=== PATIENT | male | born 1950 | race Caucasian/White ===

== ENCOUNTER 2018-03-31 05:51 | Day surgery (SDC) | payer OTHER ==
[2018-03-29 12:33] VITALS: BP 106/61
[2018-03-29 12:39] LABS: HEMATOCRIT 31.1 % (42-54); LYMPHOCYTES % (AUTO) 14.9 % (21.0-51.0); MEAN CORPUSCULAR HEMOGLOBIN 17.7 pg (27.0-33.0); MEAN CORPUSCULAR HGB CONC 29.1 g/dL (32.0-36.0); MEAN CORPUSCULAR VOLUME 60.8 fL (79-99); MONOCYTES % (AUTO) 8.9 % (3.0-13.0); NEUTROPHILS % (AUTO) 73.2 % (40.0-77.0); NUCLEATED RED BLOOD CELLS 0.1 % (0.0-0.19); PLATELET COUNT (AUTO) 228 K/uL (130-400); RED BLOOD CELL COUNT(AUTO) 5.11 MIL/uL (4.50-6.20); RED CELL DISTRIBUTION WIDTH 19.3 % (11.0-15.5); WHITE BLOOD COUNT (AUTO) 7.1 K/uL (4.8-10.8)
[2018-03-29 12:54] LABS: CREATININE 1.2 mg/dL (0.5-1.5); POTASSIUM 4.5 mmol/L (3.5-5.1)
[2018-03-29 13:30] LABS: INR 0.98 (0.85-1.15); PARTIAL THROMBOPLASTIN TIME 25.4 SEC (26.3-35.5); PROTHROMBIN TIME 10.3 SEC (9.6-11.6)
--- NOTE | 2018-03-30 12:58 | NUR ---
NOTE REPORTED LOW H&h TO DR BISWAS NO FURTHER ORDERS GIVEN.
[2018-03-31] VITALS (8 sets, daily range): BP systolic 93–127; BP diastolic 67–85
[~2018-03-31] VITALS: Ht 181.6 cm; Wt 102.9 kg
[~2018-03-31 05:51] MED LIST: APIX5TAB PO; CARV6.25 PO; MULT-1203 PO; OMEP20CA10 PO; ROSU10TA27 PO; SOTA80TA20 PO; [UNRECOGNIZED DRUG - OTHER] PO
[2018-03-31] MEDS ORDERED: HEPARIN SODIUM 1000UNIT/ML 10ML VIAL ONE (07:13)
[2018-03-31] MEDS ORDERED: MEPERIDINE-PF 25 MG/ML SYG ONE ×5 (07:13→10:04)
[2018-03-31] MEDS ORDERED: MIDAZOLAM HCL 1 MG/ML 2ML VIAL ONE ×6 (07:14→10:05)
[2018-03-31] MEDS ORDERED: LIDOCAINE HCL 2% 20ML ONE (07:14)
[2018-03-31] MEDS ORDERED: SODIUM CHLORIDE 0.9% 1000ML 1,000 ML IV SCH (08:00)
[2018-03-31] MEDS ORDERED: AMIODARONE HCL 50 MG/ML 3 ML VIAL ONE (09:39)
[2018-03-31] MEDS ORDERED: METOPROLOL TARTRATE 1 MG/ML 5ML VIAL IV ONE (10:10)
[2018-03-31] MEDS ORDERED: DRON400T2 PO (10:28)
[2018-03-31] MEDS ORDERED: METO25TA6 PO (10:28)
--- NOTE | 2018-03-31 13:25 | NUR ---
pt returned from quality lab technician at 1104 with quality lab technician staff, pt remains afib 119 and aware. Discharge orders for 1400, called Doctor Antunez and discussed that pt remains Afib in the 120, per doctor antunez okay to discharge however, medication regimen needs to be discussed.
== END 2018-03-31 14:00 | disposition home or self-care (01) ==
LOC: DAH 05:51
PROVIDERS: ATTEND Internal Medicine Cardiovascular Disease
DX: I48.0 Paroxysmal atrial fibrillation (principal); I48.4 Atypical atrial flutter; Z79.01 Long term (current) use of anticoagulants; Z98.890 Other specified postprocedural states; K21.0 Gastro-esophageal reflux disease with esophagitis; Z68.30 Body mass index [BMI] 30.0-30.9, adult; I25.10 Atherosclerotic heart disease of native coronary artery without angina pectoris; E78.5 Hyperlipidemia, unspecified; Z88.8 Allergy status to other drugs, medicaments and biological substances; Z79.899 Other long term (current) drug therapy; Z88.0 Allergy status to penicillin
CPT/HCPCS: 36415; 80048; 85025; 85610; 85730; 93613; 93621; 93653; A4606; A4649; C1730 ×2; C1732; C1893; C1894 ×2; J0282; J1644 ×2; J2175 ×4; J2250 ×5; J3490 ×2; J7030; 99156; 99157

== ENCOUNTER 2018-05-31 05:53 | Day surgery (SDC) | payer OTHER ==
[2018-05-29 08:37] VITALS: BP 117/90
[2018-05-29 08:38] LABS: BASOPHILS % (AUTO) 1.7 % (0.0-5.0); EOSINOPHILS % (AUTO) 3.2 % (0.0-8.0); LYMPHOCYTES % (AUTO) 16.4 % (21.0-51.0); MEAN CORPUSCULAR HEMOGLOBIN 18.2 pg (27.0-33.0); MEAN CORPUSCULAR HGB CONC 29.8 g/dL (32.0-36.0); MEAN CORPUSCULAR VOLUME 61.2 fL (79-99); MONOCYTES % (AUTO) 6.7 % (3.0-13.0); NUCLEATED RED BLOOD CELLS 0.1 % (0.0-0.19); PLATELET COUNT (AUTO) 283 K/uL (130-400); RED BLOOD CELL COUNT(AUTO) 5.07 MIL/uL (4.50-6.20)
[2018-05-29 08:49] LABS: CREATININE 1.1 mg/dL (0.5-1.5)
[2018-05-29 08:52] LABS: INR 1.07 (0.85-1.15); PARTIAL THROMBOPLASTIN TIME 28.9 SEC (26.3-35.5); PROTHROMBIN TIME 11.2 SEC (9.6-11.6)
--- NOTE | 2018-05-29 15:21 | NUR ---
CBC cbc from 05/29/[address] Buenrostro's office, no new orders, ok to proceed with procedure as planned per [facility] nurse.
[~2018-05-31] VITALS: Ht 181.6 cm; Wt 104.0 kg
[2018-05-31] VITALS (8 sets, daily range): BP systolic 99–123; BP diastolic 55–79
[~2018-05-31 05:53] MED LIST changes: -CARV6.25 PO; +DRON400T2 PO; +METO100T14 PO; +SODIUM CHLORIDE 0.9% 1000ML 1,000 ML IV SCH; -SOTA80TA20 PO; +UBIQUINOL PO; +VITA1CAP85 PO; -[UNRECOGNIZED DRUG - OTHER] PO
[2018-05-31] MEDS ORDERED: PROPOFOL 10 MG/ML 20ML VIAL IV ONE (06:50)
[2018-05-31] MEDS ORDERED: LIDOCAINE HCL 1% 20 ML VIAL ONE (06:51)
--- NOTE | 2018-05-31 07:15 | NUR ---
time out done cardioverstion done [address] antunez. patient tolerated procedure well.
--- NOTE | 2018-05-31 08:20 | NUR ---
PATIENT DISCHARGED IN NO DISTRESS VIA WHEELCHAIR. STATED SHE WILL MAKE F/U APPOINTMENT AFTER 234
== END 2018-05-31 08:20 | disposition home or self-care (01) ==
LOC: DAH 05:53
PROVIDERS: ATTEND Internal Medicine Cardiovascular Disease
DX: I48.1 Persistent atrial fibrillation (principal); E78.5 Hyperlipidemia, unspecified; Z79.01 Long term (current) use of anticoagulants; Z88.0 Allergy status to penicillin; Z88.8 Allergy status to other drugs, medicaments and biological substances; Z79.899 Other long term (current) drug therapy; I48.3 Typical atrial flutter; I47.1 Supraventricular tachycardia
CPT/HCPCS: 36415; 80048; 85025; 85610; 85730; 92960; 93005 ×2; A4606; J2704; 99156

== ENCOUNTER 2018-09-22 05:55 | Day surgery (SDC) | payer OTHER ==
[2018-09-20 12:01] LABS: BASOPHILS % (AUTO) 1.2 % (0.0-5.0); HEMATOCRIT 35.5 % (42-54); MEAN CORPUSCULAR HEMOGLOBIN 19.2 pg (27.0-33.0); NEUTROPHILS % (AUTO) 62.8 % (40.0-77.0); PLATELET COUNT (AUTO) 235 K/uL (130-400); RED BLOOD CELL COUNT(AUTO) 5.55 MIL/uL (4.50-6.20); RED CELL DISTRIBUTION WIDTH 19.4 % (11.0-15.5); WHITE BLOOD COUNT (AUTO) 4.9 K/uL (4.8-10.8)
[2018-09-20 12:03] VITALS: BP 127/95
[2018-09-20 12:09] LABS: CREATININE 1.2 mg/dL (0.5-1.5); POTASSIUM 4.7 mmol/L (3.5-5.1)
[2018-09-20 12:12] LABS: INR 1.02 (0.85-1.15); PROTHROMBIN TIME 10.7 SEC (9.6-11.6)
[~2018-09-22] VITALS: Ht 182.9 cm; Wt 104.7 kg
[2018-09-22] VITALS (8 sets, daily range): BP systolic 113–141; BP diastolic 71–83
[~2018-09-22 05:55] MED LIST changes: +AMIO200T5 PO; -DRON400T2 PO; +LOSA50TA64 PO; -MULT-1203 PO; +OMEP-50 PO; -OMEP20CA10 PO; -ROSU10TA27 PO; +ROSU10TA28 PO; -SODIUM CHLORIDE 0.9% 1000ML 1,000 ML IV SCH; -VITA1CAP85 PO
--- NOTE | 2018-09-22 06:00 | NUR ---
PRE-PROCEDURE RECEIVED TO DAY 14 AMBULATING FOR SCHEDULED ATRIAL FLUTTER ABLATION. PER PT HE HAS BEEN HAVING "IRREGULAR PULSE" SINCE AUGUST. AWAKE IN NO ACUTE DISTRESS. CONNECTED TO CONTINUOUS CARDIOPULMONARY MONITORING. DENIES PAIN. SIDE RAILS UP X2, CALL LIGHT W/IN REACH, AND BED IN LOWEST POSITION.
[2018-09-22] MEDS ORDERED: MIDAZOLAM HCL 1 MG/ML 2ML VIAL ONE ×2 (07:18→08:18)
[2018-09-22] MEDS ORDERED: LIDOCAINE HCL 2% 20ML ONE (07:18)
[2018-09-22] MEDS ORDERED: HEPARIN SODIUM 1000UNIT/ML 10ML VIAL ONE (07:18)
[2018-09-22] MEDS ORDERED: MEPERIDINE-PF 25 MG/ML SYG ONE ×2 (07:18→08:18)
--- NOTE | 2018-09-22 07:30 | NUR ---
PROCEDURE TRANSFERRED TO FOOTWEAR FACTORY WORKER FOR ATRIAL FLUTTER ABLATION VIA BED BY ANTHONY JOYCE RN.
[2018-09-22] MEDS ORDERED: SODIUM CHLORIDE 0.9% 1000ML 1,000 ML IV SCH (08:00)
--- NOTE | 2018-09-22 09:55 | NUR ---
POST-PROCEDURE RECEIVED FROM HEAVY MACHINERY ASSEMBLER TO DAY 14 S/P ATRIAL FLUTTER ABLATION. CONNECTED TO CONTINUOUS CARDIOPULMONARY MONITORING. AWAKE IN NO ACUTE DISTRESS. DENIES PAIN. CATH SITE W/O SIGNS OF BLEEDING; DRESSING CLEAN, DRY, AND INTACT; SITE SOFT, NON-TENDER. EDUCATED REGARDING BEDREST X3 HOURS, NOT TO MOVE RIGHT LEG OR RAISE HEAD. BED IN LOWEST POSITION, CALL LIGHT W/IN REACH, SIDE RAILS UP X2.
--- NOTE | 2018-09-22 11:30 | NUR ---
DIET ATE 75% OF LUNCH
--- NOTE | 2018-09-22 13:00 | NUR ---
ACTIVITY UP TO EDGE OF BED WITH STANDBY ASSIST ONLY. TOLERATED W/O COMPLICATIONS. CATH SITE W/O SIGNS OF BLEEDING;SITE SOFT, NON-TENDER;DRESSING CLEAN, DRY, AND INTACT.
--- NOTE | 2018-09-22 13:05 | NUR ---
DISCHARGE DAY PT DISCHARGE INSTRUCTION SHEET, MED REC,AND PT EDUCATION REVIEWED WITH PT. PT INSTRUCTED ON CHECKING CATH SITE AT HOME FOR SIGNS OF BLEEDING AND IF PUNCTURE SITE STARTS BLEEDING, APPLY DIRECT PRESSURE OVER THE AREA AND SEEK MEDICAL ATTENTION. PT VERBALIZED UNDERSTANDING. CATH SITE W/O SIGNS OF BLEEDING;SITE SOFT, NON-TENDER;DRESSING CLEAN, DRY, AND INTACT.
--- NOTE | 2018-09-22 13:12 | NUR ---
DISCHARGE DISCHARGED VIA W/C. AWAKE IN NO ACUTE DISTRESS. DENIES PAIN.
== END 2018-09-22 13:12 | disposition home or self-care (01) ==
LOC: DAH 05:55
PROVIDERS: ATTEND Internal Medicine Cardiovascular Disease
DX: I48.92 Unspecified atrial flutter (principal); I48.0 Paroxysmal atrial fibrillation; I25.10 Atherosclerotic heart disease of native coronary artery without angina pectoris; E78.5 Hyperlipidemia, unspecified; N40.0 Benign prostatic hyperplasia without lower urinary tract symptoms; F15.90 Other stimulant use, unspecified, uncomplicated; Z88.0 Allergy status to penicillin; Z88.8 Allergy status to other drugs, medicaments and biological substances; Z79.01 Long term (current) use of anticoagulants; Z79.899 Other long term (current) drug therapy; Z98.890 Other specified postprocedural states; Z82.49 Family history of ischemic heart disease and other diseases of the circulatory system; Z83.3 Family history of diabetes mellitus; Z82.3 Family history of stroke
CPT/HCPCS: 36415; 80048; 85025; 85610; 85730; 93005; 93613; 93621; 93653; A4606; A4649; C1730 ×2; C1732; C1894 ×2; J1644 ×2; J2175 ×2; J2250 ×2; J3490; J7030; 99156; 99157

== ENCOUNTER 2020-05-13 12:11 | Emergency (ER) | payer OTHER ==
[~2020-05-13 12:11] MED LIST changes: -AMIO200T5 PO; +AMIO200T6 PO; -OMEP-50 PO; +OMEP20CA12 PO
[2020-05-13 12:38] LABS: BASOPHILS % (AUTO) 0.5 % (0.0-5.0); EOSINOPHILS % (AUTO) 2.1 % (0.0-8.0); HEMATOCRIT 48.8 % (42-54); LYMPHOCYTES % (AUTO) 25.9 % (21.0-51.0); MEAN CORPUSCULAR HEMOGLOBIN 28.3 pg (27.0-33.0); MEAN CORPUSCULAR HGB CONC 32.8 g/dL (32.0-36.0); MEAN CORPUSCULAR VOLUME 86.2 fL (79-99); MONOCYTES % (AUTO) 5.1 % (3.0-13.0); NEUTROPHILS % (AUTO) 66.2 % (40.0-77.0); PLATELET COUNT (AUTO) 251 K/uL (130-400); RED BLOOD CELL COUNT(AUTO) 5.66 MIL/uL (4.50-6.20); RED CELL DISTRIBUTION WIDTH 14.9 % (11.0-15.5); WHITE BLOOD COUNT (AUTO) 8.2 K/uL (4.8-10.8)
[2020-05-13 12:50] LABS: CREATININE 1.1 mg/dL (0.5-1.5); INR 1.07 (0.85-1.15); POTASSIUM 4.1 mmol/L (3.5-5.1); PROTHROMBIN TIME 11.6 SEC (9.6-11.6)
[2020-05-13 12:52] LABS: PARTIAL THROMBOPLASTIN TIME 29.7 SEC (26.3-35.5)
[2020-05-13 12:55] LABS: ALBUMIN 3.6 g/dL (3.5-5.0); BILIRUBIN,TOTAL 1.4 mg/dL (0.2-1.0); TOTAL PROTEIN, SERUM 7.1 g/dL (6.0-8.3)
[2020-05-13 13:02] LABS: B-TYPE NATRIURETIC PEPTIDE 598 pg/mL (0-100)
[2020-05-13] MEDS ORDERED: FUROSEMIDE 10 MG/ML 4ML VIAL ONE (13:49)
[2020-05-13] MEDS ORDERED: METOPROLOL TARTRATE 50 MG TAB ONE (14:26)
[2020-05-13] MEDS ORDERED: DILTIAZEM HCL 5 MG/ML 10 ML VIAL IV ONE (15:10)
== END 2020-05-13 15:39 | disposition home or self-care (01) ==
LOC: EDH 12:11
DX: I48.91 Unspecified atrial fibrillation (principal); E87.70 Fluid overload, unspecified; R00.0 Tachycardia, unspecified; I10 Essential (primary) hypertension; Z88.0 Allergy status to penicillin; Z87.891 Personal history of nicotine dependence
CPT/HCPCS: 36415; 71045; 80053; 83880; 84484; 85025; 85610; 85730; 93005; 96374; 96375; 99285; J1940; J3490

== ENCOUNTER → 2020-07-18 | Outpatient (CLI) | payer OTHER | END | disposition home or self-care (01) | LOC: SHCH 07:51 | PROVIDERS: ATTEND Internal Medicine Cardiovascular Disease | DX: I08.1 Rheumatic disorders of both mitral and tricuspid valves (principal); I48.0 Paroxysmal atrial fibrillation; I50.20 Unspecified systolic (congestive) heart failure | CPT/HCPCS: 93306; 93356 ==

== ENCOUNTER 2020-08-06 11:40 | Emergency (ER) | payer OTHER ==
[2020-08-06 11:54] LABS: BASOPHILS % (AUTO) 0.6 % (0.0-5.0); EOSINOPHILS % (AUTO) 2.7 % (0.0-8.0); HEMATOCRIT 49.3 % (42-54); MEAN CORPUSCULAR HEMOGLOBIN 27.8 pg (27.0-33.0); MEAN CORPUSCULAR HGB CONC 32.7 g/dL (32.0-36.0); MONOCYTES % (AUTO) 5.5 % (3.0-13.0); NEUTROPHILS % (AUTO) 70.8 % (40.0-77.0); PLATELET COUNT (AUTO) 227 K/uL (130-400); RED CELL DISTRIBUTION WIDTH 15.5 % (11.0-15.5); WHITE BLOOD COUNT (AUTO) 6.7 K/uL (4.8-10.8)
[2020-08-06 12:19] LABS: ALBUMIN 3.4 g/dL (3.5-5.0); BILIRUBIN,TOTAL 1.2 mg/dL (0.2-1.0); CREATININE 1.2 mg/dL (0.5-1.5); INR 1.07 (0.85-1.15); POTASSIUM 4.7 mmol/L (3.5-5.1); PROTHROMBIN TIME 11.6 SEC (9.6-11.6); TOTAL PROTEIN, SERUM 6.8 g/dL (6.0-8.3)
[2020-08-06 12:20] LABS: PARTIAL THROMBOPLASTIN TIME 29.2 SEC (26.3-35.5)
[2020-08-06] MEDS ORDERED: SODIUM CHLORIDE 0.9% 1000ML 1,000 ML IV ONE (12:20)
[2020-08-06] MEDS ORDERED: IOHEXOL 350 MG/ML 100ML INFUS..BTL IV ONE (12:30)
== END 2020-08-06 14:55 | disposition home or self-care (01) ==
LOC: EDH 11:40
DX: S09.90XA Unspecified injury of head, initial encounter (principal); S19.89XA Other specified injuries of other specified part of neck, initial encounter; R07.89 Other chest pain; I10 Essential (primary) hypertension; I48.91 Unspecified atrial fibrillation; Z87.891 Personal history of nicotine dependence; Z88.0 Allergy status to penicillin; V49.59XA Passenger injured in collision with other motor vehicles in traffic accident, initial encounter; Y93.89 Activity, other specified; Y92.89 Other specified places as the place of occurrence of the external cause; Y99.8 Other external cause status
CPT/HCPCS: 36415; 70450; 71045; 71260; 72040 ×2; 74177; 80053; 85025; 85610; 85730; 93005; 96360; 99285; J7030; Q9967

== ENCOUNTER → 2020-08-12 | Outpatient (CLI) | payer OTHER ==
[~2020-08-12] VITALS: Ht 182.9 cm; Wt 104.8 kg
[~2020-08-12] MED LIST changes: +REGADENOSON 0.4 MG/5 ML PF SYG IVP SCH
== END | disposition home or self-care (01) ==
LOC: SHCH 08:53
PROVIDERS: ATTEND Internal Medicine Cardiovascular Disease
DX: I25.10 Atherosclerotic heart disease of native coronary artery without angina pectoris (principal); I48.91 Unspecified atrial fibrillation; I51.7 Cardiomegaly
CPT/HCPCS: 78452; 93017; 96374; A9500 ×2

== ENCOUNTER 2020-09-23 05:51 | Day surgery (SDC) | payer OTHER ==
[2020-09-19 10:42] LABS: BASOPHILS % (AUTO) 0.6 % (0.0-5.0); EOSINOPHILS % (AUTO) 2.2 % (0.0-8.0); HEMATOCRIT 48.7 % (42-54); LYMPHOCYTES % (AUTO) 24.7 % (21.0-51.0); MEAN CORPUSCULAR HEMOGLOBIN 27.8 pg (27.0-33.0); MEAN CORPUSCULAR HGB CONC 32.4 g/dL (32.0-36.0); MEAN CORPUSCULAR VOLUME 85.6 fL (79-99); MONOCYTES % (AUTO) 7.5 % (3.0-13.0); NEUTROPHILS % (AUTO) 64.6 % (40.0-77.0); PLATELET COUNT (AUTO) 196 K/uL (130-400); RED BLOOD CELL COUNT(AUTO) 5.69 MIL/uL (4.50-6.20); RED CELL DISTRIBUTION WIDTH 16.6 % (11.0-15.5); WHITE BLOOD COUNT (AUTO) 5.3 K/uL (4.8-10.8)
[2020-09-19 10:43] LABS: APPEARANCE,URINE Clear (CLEAR); BILIRUBIN,URINE Negative (NEGATIVE); COLOR,URINE Dark Yellow (YELLOW); GLUCOSE, URINE (UA) Negative (NEGATIVE); KETONES,URINE 15 mg/dL (NEGATIVE); LEUKOCYTE ESTERASE ,URINE Trace (NEGATIVE); NITRATE,URINE Negative (NEGATIVE); OCCULT BLOOD,URINE Negative (NEGATIVE); PH,URINE 5.5 (5.0-8.0); PROTEIN,URINE POS 1+ mg/dL (NEGATIVE)
[2020-09-19 10:56] LABS: INR 1.15 (0.85-1.15); PROTHROMBIN TIME 12.4 SEC (9.6-11.6)
[2020-09-19 10:58] LABS: PARTIAL THROMBOPLASTIN TIME 30.8 SEC (26.3-35.5)
[2020-09-19 10:59] LABS: CREATININE 1.4 mg/dL (0.5-1.5); POTASSIUM 4.3 mmol/L (3.5-5.1)
[2020-09-19 11:01] LABS: BACTERIA,URINE Rare /HPF (None Seen); MUCUS,URINE Moderate LPF (None Seen); RBC,URINE None Seen /HPF (0-1); WBC,URINE 0-1 /HPF (0-1)
[2020-09-22 12:56] VITALS: BP 100/59
[2020-09-23] VITALS (8 sets, daily range): BP systolic 97–123; BP diastolic 46–83
[~2020-09-23] VITALS: Ht 182.9 cm; Wt 104.0 kg
[~2020-09-23 05:51] MED LIST changes: -AMIO200T6 PO; +ASCO500C6 PO; +CARV25TA PO; +DRON400T7 PO; -LOSA50TA64 PO; -METO100T14 PO; +OMEG100033 PO; -OMEP20CA12 PO; -REGADENOSON 0.4 MG/5 ML PF SYG IVP SCH; +SACU1TAB PO; +VITA-164 PO; +VITA1CAP85 PO
[2020-09-23] MEDS ORDERED: 0.9% NACL 500ML IV.SOLN 500 ML IV SCH (06:00)
[2020-09-23] MEDS ORDERED: IOHEXOL-350 75 ML VIAL IV ONE (08:03)
[2020-09-23] MEDS ORDERED: IOHEXOL-350 50ML VIAL IV ONE (08:03)
[2020-09-23] MEDS ORDERED: MIDAZOLAM HCL 1 MG/ML 2ML VIAL ONE (08:03)
[2020-09-23] MEDS ORDERED: LIDOCAINE HCL 400MG/20ML VIAL ONE (08:03)
[2020-09-23] MEDS ORDERED: ACETAMINOPHEN 500 MG TABLET PO ONE (09:30)
== END 2020-09-23 11:45 | disposition home or self-care (01) ==
LOC: DAH 05:51
PROVIDERS: ATTEND Internal Medicine Cardiovascular Disease
DX: I20.9 Angina pectoris, unspecified (principal); I25.5 Ischemic cardiomyopathy; I48.0 Paroxysmal atrial fibrillation; I48.3 Typical atrial flutter; N18.31 Chronic kidney disease, stage 3a; M17.12 Unilateral primary osteoarthritis, left knee; Z90.89 Acquired absence of other organs; E78.5 Hyperlipidemia, unspecified; Z98.890 Other specified postprocedural states; Z79.899 Other long term (current) drug therapy; Z83.3 Family history of diabetes mellitus; Z82.49 Family history of ischemic heart disease and other diseases of the circulatory system; Z87.891 Personal history of nicotine dependence; Z79.01 Long term (current) use of anticoagulants; Z86.14 Personal history of Methicillin resistant Staphylococcus aureus infection
CPT/HCPCS: 36415; 71045; 80048; 81001; 85025; 85610; 85730; 93005; 93458; A4215; A4216; A4221; A4222; A4223 ×3; A4606; A4663; C1760; C1894; J1644; J2250; J3490; Q9967; 99156; 99157

== ENCOUNTER → 2020-10-13 | Outpatient (CLI) | payer OTHER | END | disposition home or self-care (01) | LOC: RAH 10:15 | PROVIDERS: ATTEND Internal Medicine Cardiovascular Disease | DX: I08.1 Rheumatic disorders of both mitral and tricuspid valves (principal); R55 Syncope and collapse; E66.9 Obesity, unspecified; E78.5 Hyperlipidemia, unspecified; I10 Essential (primary) hypertension | CPT/HCPCS: 93306; 93356 ==

== ENCOUNTER 2020-12-04 06:49 | Day surgery (SDC) | payer OTHER ==
[2020-12-02 16:20] LABS: BASOPHILS % (AUTO) 0.6 % (0.0-5.0); HEMATOCRIT 49.4 % (42-54); LYMPHOCYTES % (AUTO) 25.2 % (21.0-51.0); MEAN CORPUSCULAR HEMOGLOBIN 29.4 pg (27.0-33.0); MEAN CORPUSCULAR HGB CONC 32.6 g/dL (32.0-36.0); MEAN CORPUSCULAR VOLUME 90.3 fL (79-99); MONOCYTES % (AUTO) 9.8 % (3.0-13.0); PLATELET COUNT (AUTO) 206 K/uL (130-400); RED BLOOD CELL COUNT(AUTO) 5.47 MIL/uL (4.50-6.20)
[2020-12-02 16:56] LABS: CREATININE 1.3 mg/dL (0.5-1.5); POTASSIUM 4.2 mmol/L (3.5-5.1)
[2020-12-03 09:37] VITALS: BP 137/83
[~2020-12-04] VITALS: Ht 182.9 cm; Wt 106.4 kg
[2020-12-04] VITALS (10 sets, daily range): BP systolic 101–115; BP diastolic 54–88
[~2020-12-04 06:49] MED LIST changes: +AMIO200T6 PO; +ASCO500C18 PO; -ASCO500C6 PO; +DOCO100C3 PO; -DRON400T7 PO; +FURO20TA4 PO; +OMEP40CA21 PO; -ROSU10TA28 PO; -VITA-164 PO; +VITA0.4T20 PO; +VITA100T5 PO; -VITA1CAP85 PO
[2020-12-04] MEDS ORDERED: 0.9%NACL 1000ML 1,000 ML IV SCH (08:00)
[2020-12-04] MEDS ORDERED: PROPOFOL 10 MG/ML 20ML VIAL IV ONE (08:46)
[2020-12-04] MEDS ORDERED: PHENYLEPHRINE HCL 10 MG/ML 1ML VIAL IV ONE (08:47)
== END 2020-12-04 10:36 | disposition home or self-care (01) ==
LOC: DAH 06:49
PROVIDERS: ATTEND Internal Medicine Cardiovascular Disease
DX: I48.19 Other persistent atrial fibrillation (principal); Z20.822 Contact with and (suspected) exposure to COVID-19; N18.31 Chronic kidney disease, stage 3a; E78.5 Hyperlipidemia, unspecified; I48.92 Unspecified atrial flutter; I25.5 Ischemic cardiomyopathy; Z88.0 Allergy status to penicillin; M19.90 Unspecified osteoarthritis, unspecified site; Z88.8 Allergy status to other drugs, medicaments and biological substances; Z98.890 Other specified postprocedural states; Z86.14 Personal history of Methicillin resistant Staphylococcus aureus infection; Z79.01 Long term (current) use of anticoagulants; Z90.89 Acquired absence of other organs; Z79.899 Other long term (current) drug therapy; Z83.3 Family history of diabetes mellitus; Z80.9 Family history of malignant neoplasm, unspecified; Z82.49 Family history of ischemic heart disease and other diseases of the circulatory system
CPT/HCPCS: 36415; 80048; 85025; 87635; 92960; 93005; A4215; A4216; A4221; A4222; A4223 ×3; A4606; A4663; C9803; J2370; J2704; J7030 ×2

== ENCOUNTER 2021-02-04 06:48 | Observation (INO) | payer OTHER ==
[2021-02-03 13:09] LABS: BASOPHILS % (AUTO) 0.9 % (0.0-5.0); EOSINOPHILS % (AUTO) 4.2 % (0.0-8.0); HEMATOCRIT 51.8 % (42-54); LYMPHOCYTES % (AUTO) 21.9 % (21.0-51.0); MEAN CORPUSCULAR HEMOGLOBIN 31.6 pg (27.0-33.0); MEAN CORPUSCULAR HGB CONC 33.2 g/dL (32.0-36.0); MONOCYTES % (AUTO) 5.8 % (3.0-13.0); NEUTROPHILS % (AUTO) 66.8 % (40.0-77.0); PLATELET COUNT (AUTO) 193 K/uL (130-400); RED BLOOD CELL COUNT(AUTO) 5.45 MIL/uL (4.50-6.20); RED CELL DISTRIBUTION WIDTH 15.4 % (11.0-15.5); WHITE BLOOD COUNT (AUTO) 5.7 K/uL (4.8-10.8)
[2021-02-03 13:20] LABS: CREATININE 1.4 mg/dL (0.5-1.5); POTASSIUM 4.3 mmol/L (3.5-5.1)
[2021-02-03 13:23] LABS: INR 1.05 (0.85-1.15); PROTHROMBIN TIME 11.4 SEC (9.6-11.6)
[2021-02-03 13:24] LABS: PARTIAL THROMBOPLASTIN TIME 28.8 SEC (26.3-35.5)
[~2021-02-04] VITALS: Ht 182.9 cm; Wt 105.6 kg
[2021-02-04] VITALS (9 sets, daily range): BP systolic 108–123; BP diastolic 70–84
[~2021-02-04 06:48] MED LIST changes: +0.9% NACL 500ML IV.SOLN 500 ML IV SCH; -AMIO200T6 PO; +AMIO200T68 PO; +CEFAZOLIN SODIUM 1 GM VIAL IVP SCH
[2021-02-04] MEDS ORDERED: 0.9%NACL 1000ML 1,000 ML IV ONE (07:55)
[2021-02-04] MEDS ORDERED: IODIXANOL 320 MG/ML 100 ML VIAL ONE (14:21)
[2021-02-04] MEDS ORDERED: BUPIVACAINE/PF 0.25% 30ML VIAL IJ ONE (14:21)
[2021-02-04] MEDS ORDERED: MIDAZOLAM HCL 1 MG/ML 2ML VIAL ONE ×4 (14:22→16:12)
[2021-02-04] MEDS ORDERED: MEPERIDINE-PF 25 MG/ML SYG ONE ×3 (14:22→16:12)
[2021-02-04] MEDS ORDERED: LIDOCAINE HCL 1% MDV 50ML VIAL ONE (14:22)
[2021-02-04] MEDS ORDERED: VANCOMYCIN 1G/250ML KIT 500 ML IV ONE (14:43)
[2021-02-04] MEDS ORDERED: ACETAMINOPHEN WITH CODEINE 1 TAB TAB PO PRN (17:00)
[2021-02-04] MEDS ORDERED: FUROSEMIDE 20 MG TABLET PO PRN (17:00)
[2021-02-04] MEDS ORDERED: TRAM50TA4 PO (17:03)
[2021-02-04] MEDS: SACUBITRIL/VALSARTAN 1 EACH TABLET PO SCH (20:28)
[2021-02-04] MEDS: CARVEDILOL 12.5 MG TABLET PO SCH (20:28)
[2021-02-05 04:00] VITALS: BP 111/75
[2021-02-05 07:17] LABS: HEMATOCRIT 47.4 % (42-54); MEAN CORPUSCULAR HEMOGLOBIN 31.2 pg (27.0-33.0); MEAN CORPUSCULAR HGB CONC 33.1 g/dL (32.0-36.0); MEAN CORPUSCULAR VOLUME 94.2 fL (79-99); RED BLOOD CELL COUNT(AUTO) 5.03 MIL/uL (4.50-6.20); RED CELL DISTRIBUTION WIDTH 14.9 % (11.0-15.5); WHITE BLOOD COUNT (AUTO) 7.9 K/uL (4.8-10.8)
[2021-02-05 07:23] LABS: CREATININE 1.3 mg/dL (0.5-1.5); POTASSIUM 3.9 mmol/L (3.5-5.1)
[2021-02-05 08:00] VITALS: BP 107/77
[2021-02-05 08:27] VITALS: BP 111/75
[2021-02-05] MEDS: CARVEDILOL 12.5 MG TABLET PO SCH (08:27)
[2021-02-05] MEDS: SACUBITRIL/VALSARTAN 1 EACH TABLET PO SCH (08:27)
[2021-02-05] MEDS ORDERED: FISH OIL 1000 MG/CAP PO SCH (09:00)
[2021-02-05] MEDS ORDERED: VITAMIN E MIXED 100 UNIT PO SCH (09:00)
[2021-02-05] MEDS ORDERED: UBIQUINOL PO SCH (09:00)
[2021-02-05] MEDS ORDERED: VITAMIN B COMPLEX 1 CAPSULE PO SCH (09:00)
[2021-02-05] MEDS ORDERED: ASCORBIC ACID 500 MG TAB PO SCH (09:00)
[2021-02-05] MEDS ORDERED: PANTOPRAZOLE 40 MG TAB DR PO SCH (09:00)
[2021-02-05] MEDS ORDERED: DOCOSAHEXANOIC ACID PO SCH (09:00)
== END 2021-02-05 12:05 | disposition home or self-care (01) ==
LOC: DAH 06:48 → DAHIP 06:49 → 4DH 17:42
PROVIDERS: ADMIT Internal Medicine; ATTEND Internal Medicine
DX: I25.5 Ischemic cardiomyopathy (principal); I48.0 Paroxysmal atrial fibrillation; I25.10 Atherosclerotic heart disease of native coronary artery without angina pectoris; I11.0 Hypertensive heart disease with heart failure; I50.22 Chronic systolic (congestive) heart failure; I42.8 Other cardiomyopathies; N18.30 Chronic kidney disease, stage 3 unspecified; E78.5 Hyperlipidemia, unspecified; Z79.01 Long term (current) use of anticoagulants; Z86.14 Personal history of Methicillin resistant Staphylococcus aureus infection
CPT/HCPCS: 33225; 33249; 36415 ×2; 71045; 80048 ×2; 85025; 85027; 85610; 85730; 93005; A4215; A4216; A4221; A4222; A4223 ×3; A4606; A4663; C1769 ×2; C1882; C1895; C1900; G0378 ×19; J2175 ×3; J2250 ×4; J3370; J3490 ×2; J7030 ×2; Q9967; 99156; 99157; J0690

== ENCOUNTER 2021-03-23 08:19 | Day surgery (SDC) | payer OTHER ==
[2021-03-19 16:05] LABS: BASOPHILS % (AUTO) 0.8 % (0.0-5.0); EOSINOPHILS % (AUTO) 3.6 % (0.0-8.0); HEMATOCRIT 48.6 % (42-54); LYMPHOCYTES % (AUTO) 21.7 % (21.0-51.0); MEAN CORPUSCULAR HEMOGLOBIN 31.3 pg (27.0-33.0); MEAN CORPUSCULAR HGB CONC 33.5 g/dL (32.0-36.0); MEAN CORPUSCULAR VOLUME 93.3 fL (79-99); MONOCYTES % (AUTO) 6.7 % (3.0-13.0); NEUTROPHILS % (AUTO) 66.9 % (40.0-77.0); PLATELET COUNT (AUTO) 177 K/uL (130-400); RED BLOOD CELL COUNT(AUTO) 5.21 MIL/uL (4.50-6.20); RED CELL DISTRIBUTION WIDTH 13.2 % (11.0-15.5); WHITE BLOOD COUNT (AUTO) 6.4 K/uL (4.8-10.8)
[2021-03-19 16:16] LABS: CREATININE 1.1 mg/dL (0.5-1.5); POTASSIUM 4.2 mmol/L (3.5-5.1)
[2021-03-19 16:20] LABS: PARTIAL THROMBOPLASTIN TIME 28.5 SEC (26.3-35.5)
[2021-03-19 16:42] LABS: INR 1.05 (0.85-1.15); PROTHROMBIN TIME 11.4 SEC (9.6-11.6)
[~2021-03-23] VITALS: Ht 182.9 cm; Wt 105.4 kg
[2021-03-23] VITALS (9 sets, daily range): BP systolic 98–139; BP diastolic 81–89
[~2021-03-23 08:19] MED LIST changes: -0.9% NACL 500ML IV.SOLN 500 ML IV SCH; -AMIO200T68 PO; -CEFAZOLIN SODIUM 1 GM VIAL IVP SCH; +DIGO125T71 PO; -DOCO100C3 PO; -SACU1TAB PO; +SACU1TAB7 PO
[2021-03-23] MEDS ORDERED: 0.9%NACL 1000ML 1,000 ML IV ONE (09:28)
[2021-03-23] MEDS ORDERED: MEPERIDINE-PF 50 MG/ML SYG ONE (14:28)
[2021-03-23] MEDS ORDERED: MIDAZOLAM HCL 1 MG/ML 2ML VIAL ONE ×2 (14:28→15:05)
[2021-03-23] MEDS ORDERED: LIDOCAINE HCL 400MG/20ML VIAL ONE (14:30)
[2021-03-23] MEDS ORDERED: HEPARIN 1,000 UNIT VIAL ONE (14:45)
[2021-03-23] MEDS ORDERED: ACETAMINOPHEN 325 MG TAB ONE (17:09)
== END 2021-03-23 18:45 | disposition home or self-care (01) ==
LOC: DAH 08:19
PROVIDERS: ATTEND Internal Medicine Cardiovascular Disease
DX: I48.21 Permanent atrial fibrillation (principal); I42.0 Dilated cardiomyopathy; I44.2 Atrioventricular block, complete; E78.5 Hyperlipidemia, unspecified; M19.90 Unspecified osteoarthritis, unspecified site; Z98.890 Other specified postprocedural states; Z90.89 Acquired absence of other organs; Z79.899 Other long term (current) drug therapy; Z87.891 Personal history of nicotine dependence; Z82.49 Family history of ischemic heart disease and other diseases of the circulatory system; Z83.3 Family history of diabetes mellitus; Z80.9 Family history of malignant neoplasm, unspecified; Z88.0 Allergy status to penicillin; Z79.01 Long term (current) use of anticoagulants
CPT/HCPCS: 36415; 80048; 85025; 85610; 85730; 93619; 93650; A4215; A4216; A4221; A4222; A4223 ×3; A4606; A4649 ×2; A4663; C1732; C1894; J1644; J2175; J2250 ×2; J3490; J7030; 99156; 99157

== ENCOUNTER → 2022-12-21 | Outpatient (CLI) | payer OTHER ==
[2022-12-21 16:44] LABS: MAGNESIUM 2.1 mg/dL (1.80-2.40); POTASSIUM 3.6 mmol/L (3.5-5.1)
== END | disposition home or self-care (01) ==
LOC: LAB 14:30
PROVIDERS: ATTEND Internal Medicine Cardiovascular Disease
DX: I48.0 Paroxysmal atrial fibrillation (principal)
CPT/HCPCS: 36415; 80048; 83735

== ENCOUNTER 2023-07-12 08:51 | Emergency (ER) | payer OTHER ==
[~2023-07-12] VITALS: Ht 182.9 cm; Wt 104.3 kg
[2023-07-12] MEDS: HYDROCODONE/ACETAMINOPHEN 5/325 MG TAB PO ONE (10:01)
[2023-07-12] MEDS: IBUPROFEN 600 MG TABLET PO ONE (10:01)
[2023-07-12 11:32] VITALS: BP 90/61; PULSE 73; RESP 16; O2SAT 98
== END 2023-07-12 12:19 | disposition home or self-care (01) ==
LOC: EDH 08:51
DX: S80.02XA Contusion of left knee, initial encounter (principal); S80.01XA Contusion of right knee, initial encounter; S20.213A Contusion of bilateral front wall of thorax, initial encounter; Z79.899 Other long term (current) drug therapy; Z98.890 Other specified postprocedural states; Z88.0 Allergy status to penicillin; Z88.8 Allergy status to other drugs, medicaments and biological substances; W18.39XA Other fall on same level, initial encounter; Y93.89 Activity, other specified; Y92.89 Other specified places as the place of occurrence of the external cause; Y99.8 Other external cause status
CPT/HCPCS: 71045; 71100

== ENCOUNTER → 2024-06-12 | Outpatient (CLI) | payer OTHER ==
--- NOTE | 2024-06-12 14:21 | HMCIMG ---
CT HEART SAVER PROMOTIONAL HISTORY: Calcium scoring COMPARISON: None TECHNIQUE: Computed tomography of the heart was performed with ECG gating and suspended respiration. Postprocessing was performed on a computer workstation to obtain diastolic phase images, determine calcium score and provide a quantitative assessment of extent of disease. This CT included only the heart. HeartSaver score is 47.1. Please see cardiac calcium score report. The available CT chest images show no acute finding. CT was performed with one or more following dose reduction techniques: automated exposure control, adjustment of the mA and kv according to patient's size, or use of a iterative reconstruction technique.
== END | disposition home or self-care (01) ==
LOC: RAH 12:34
PROVIDERS: ATTEND Internal Medicine Cardiovascular Disease
DX: Z13.6 Encounter for screening for cardiovascular disorders (principal)
CPT/HCPCS: 75571

== ENCOUNTER → 2024-06-19 | Outpatient (CLI) | payer OTHER ==
[2024-06-19 12:17] LABS: BASOPHILS # (AUTO) 0.03 K/uL (0.00-0.20); BASOPHILS % (AUTO) 0.5 % (0.0-5.0); EOSINOPHILS # (AUTO) 0.39 K/uL (0.00-0.70); EOSINOPHILS % (AUTO) 6.5 % (0.0-8.0); HEMATOCRIT 50.7 % (42-54); IMMATURE GRANULOCYTE ABSOLUTE 0.02 K/uL (0-1); LYMPHOCYTES % (AUTO) 16.8 % (21.0-51.0); MEAN CORPUSCULAR HEMOGLOBIN 31.1 pg (27.0-33.0); MEAN CORPUSCULAR HGB CONC 32.7 g/dL (32.0-36.0); MEAN CORPUSCULAR VOLUME 94.9 fL (79-99); MONOCYTES # (AUTO) 0.4 K/uL (0.1-1.0); NEUTROPHILS # (AUTO) 4.2 K/uL (1.8-7.7); NEUTROPHILS % (AUTO) 69.9 % (40.0-77.0); PLATELET COUNT (AUTO) 188 K/uL (130-400); RED BLOOD CELL COUNT(AUTO) 5.34 MIL/uL (4.50-6.20); RED CELL DISTRIBUTION WIDTH 14.1 % (11.0-15.5)
[2024-06-19 12:38] LABS: CREATININE 1.1 mg/dL (0.5-1.3); POTASSIUM 4.5 mmol/L (3.5-5.1); THYROID STIMULATING HORMONE 2.07 uIU/mL (0.36-3.74)
== END | disposition home or self-care (01) ==
LOC: LAB 10:02
PROVIDERS: ATTEND Internal Medicine Cardiovascular Disease
DX: I48.0 Paroxysmal atrial fibrillation (principal); R53.83 Other fatigue; Z79.899 Other long term (current) drug therapy
CPT/HCPCS: 36415; 80048; 82306; 84443; 85025

== ENCOUNTER 2025-02-26 11:19 | Day surgery (SDC) | payer OTHER ==
[~2025-02-26] VITALS: Ht 182.9 cm; Wt 98.4 kg
[2025-02-26] VITALS (10 sets, daily range): BP systolic 98–127; BP diastolic 51–89; PULSE 73–90; RESP 15–16; TEMP 97–98.1
[~2025-02-26 11:19] MED LIST changes: +ASCO10004 PO; -ASCO500C18 PO; +CALC1CAP22 PO; +CARV12.511 PO; -CARV25TA PO; -DIGO125T71 PO; +DRON400T7 PO; +EMPA25TA PO; +EZET10TA80 PO; -FURO20TA4 PO; +FURO40TA5 PO; +METH-812 PO; -OMEG100033 PO; +OMEP20CA12 PO; -OMEP40CA21 PO; +SACU1TAB PO; -SACU1TAB7 PO; +SPIR25TA6 PO; +TAMSULOSIN 0.4MG PO; +TRAMADOL 50MG PO; +VITA-348 PO; -VITA100T5 PO
== END 2025-02-26 13:33 | disposition home or self-care (01) ==
LOC: ENDO 11:19 → DAH 11:19 → ENDO 13:33
PROVIDERS: ATTEND Internal Medicine Gastroenterology
DX: Z12.11 Encounter for screening for malignant neoplasm of colon (principal); D12.2 Benign neoplasm of ascending colon; K62.1 Rectal polyp; K64.0 First degree hemorrhoids; I10 Essential (primary) hypertension; E78.5 Hyperlipidemia, unspecified; I48.91 Unspecified atrial fibrillation; Z86.0100 Personal history of colon polyps, unspecified; Z86.16 Personal history of COVID-19; Z79.02 Long term (current) use of antithrombotics/antiplatelets; Z83.3 Family history of diabetes mellitus; Z82.49 Family history of ischemic heart disease and other diseases of the circulatory system; Z88.0 Allergy status to penicillin; Z88.6 Allergy status to analgesic agent; Z79.899 Other long term (current) drug therapy; Z98.890 Other specified postprocedural states
CPT/HCPCS: 82948 ×2; 88305; 45380; J2704; A4615; A4215; A4223; A7002; A4222; A4221; A4663; J7030; A4606; J3490